=== PATIENT | female | born 1960 | race Caucasian/White ===

== ENCOUNTER → 2017-09-03 | Outpatient (CLI) | payer OTHER | LOC: BRMIMAGING 14:58 | PROVIDERS: ATTEND Obstetrics & Gynecology | DX: Z13.820 Encounter for screening for osteoporosis (principal); M85.89 Other specified disorders of bone density and structure, multiple sites; Z79.52 Long term (current) use of systemic steroids; E28.319 Asymptomatic premature menopause ==

== ENCOUNTER → 2017-09-17 | Outpatient (CLI) | payer OTHER | LOC: BRMIMAGING 14:42 | PROVIDERS: ATTEND Obstetrics & Gynecology | DX: Z12.31 Encounter for screening mammogram for malignant neoplasm of breast (principal) ==